=== PATIENT | female | born 1975 | race Hispanic/Latino ===

== ENCOUNTER 2016-07-14 06:52 | Inpatient (IN) | payer OTHER ==
[2016-07-14] MEDS ORDERED: PROVENTIL IH ONE (08:09)
[2016-07-14] MEDS ORDERED: MAGNESIUM SULFATE 2GM/50ML 2 GM/50 ML BAG IV ONE (08:09)
[2016-07-14] MEDS ORDERED: ATROVENT IH ONE (08:09)
--- NOTE | 2016-07-14 08:46 | Emergency Department Report ---
ED Shortness of Breath HPI - General Chief Complaint: Dyspnea/Respdistress Stated Complaint: TIFFANIE Time Seen by Provider: 07/14/16 07:58 Source: patient, EMS Mode of arrival: Stretcher Limitations: No Limitations - History of Present Illness Initial Comments: 41-year-old female with a past medical history presents now complaining of shortness of breath. Patient has had wheezing and a cough 1 month. She was treated with a Z-Khurram and prescribed albuterol inhaler 1 month ago. Symptoms have been gradually improving. Wheezing episode started to worsen again yesterday and patient developed a cough productive of yellow sputum. Patient had acute worsening of symptoms this morning and had run out of her inhaler because did not have a chance to fill her refill of her prescription. No reports of fever or pain. Patient denies tobacco use or history of asthma. - Related Data Allergies Allergy/AdvReac Type Severity Reaction Status Date / Time No Known Allergies Allergy Verified 07/14/16 08:12 ED Review of Systems ROS: Stated complaint: TIFFANIE Other details as noted in HPI Comment: All other systems reviewed and negative Other: Constitutional: No fevers chills Eyes: No eye pain visual changes or discharge ENT: No ear pain or throat pain Neck: Denies pain Respiratory: As per HPI Cardiovascular: Denies chest pain, palpitations, syncope GI: Denies abdominal pain, nausea, vomiting, diarrhea : Denies dysuria Musculoskeletal: Denies back pain, joint swelling Skin: Denies rash, lesions, erythema Neurologic: Denies headache, numbness, weakness Psychiatric: Denies suicidal ideation, hallucinations ED Past Medical Hx - Social History Smoking Status: Never Smoker Substance Use Type: None ED Physical Exam - General Limitations: No Limitations - Other Other exam information: General: No limitations, patient is alert in no acute distress Head exam: Atraumatic, normocephalic Eyes exam: Normal appearance ENT: Moist mucous membrane, normal oropharynx Neck exam: Normal inspection, full range of motion Respiratory exam: Expiratory wheezing, tachypnea, mild accessory use, interrupted sentences secondary to shortness of breath Cardiovascular: Normal rate and rhythm, normal heart sounds and Abdomen: Soft, nondistended, and nontender, with normal bowel sounds, no rebound, or guarding Extremity: Full range of motion normal inspection no deformity, no calf tenderness or edema Back: Normal Inspection, full range of motion, no tenderness Neurologic: Alert, oriented x3, cranial nerves intact, no motor or sensory deficit Psychiatric: normal affect, normal mood Skin: Warm, dry, intact ED Course Vital Signs 07/14/16 07/14/16 07/14/16 06:57 07:00 07:06 Temperature 97.9 F Pulse Rate 122 H 107 H 107 H Respiratory 26 H 22 25 H Rate Blood Pressure 112/63 112/63 Blood Pressure 112/63 [Left] O2 Sat by Pulse 98 97 97 Oximetry 07/14/16 07/14/16 07/14/16 07:18 07:30 07:42 Temperature Pulse Rate 109 H Respiratory 34 H 16 Rate Blood Pressure 112/63 105/71 Blood Pressure [Left] O2 Sat by Pulse 98 99 98 Oximetry - Reevaluation(s) Reevaluation #1: 07/14/16 09:40 Patient received Solu-Medrol, magnesium, azithromycin as well as albuterol 10/ Atrovent 1 mg. Patient states to have significant wheezing. Left arm IV placed by EMS infiltrated has some surrounding erythema and tenderness. Dilaudid 0.5 mg and Phenergan order for this pain. 07/14/16 09:41 ED Medical Decision Making - Lab Data Result diagrams: 07/14/16 08:26 07/14/16 08:26 Lab Results 07/14/16 07/14/16 Range/Units 08:26 08:26 WBC 14.8 H (4.5-11.0) K/mm3 RBC 4.50 (3.65-5.03) M/mm3 Hgb 13.6 (10.1-14.3) gm/dl Hct 42.0 (30.3-42.9) % MCV 93 (79-97) fl MCH 30 (28-32) pg MCHC 32 (30-34) % RDW 13.5 (13.2-15.2) % Plt Count 234 (140-440) K/mm3 Lymph % (Auto) 13.0 L (13.4-35.0) % [place] % (Auto) 8.4 H (0.0-7.3) % Eos % (Auto) 7.6 H (0.0-4.3) % Baso % (Auto) 0.6 (0.0-1.8) % Lymph # 1.9 (1.2-5.4) K/mm3 [place] # 1.2 H (0.0-0.8) K/mm3 Eos # 1.1 H (0.0-0.4) K/mm3 Baso # 0.1 (0.0-0.1) K/mm3 Seg Neutrophils % 70.4 H (40.0-70.0) % Seg Neutrophils # 10.4 H (1.8-7.7) K/mm3 Sodium 143 (137-145) mmol/L Potassium 4.3 (3.6-5.0) mmol/L Chloride 107.3 H (98-107) mmol/L Carbon Dioxide 26 (22-30) mmol/L Anion Gap 14 mmol/L BUN 7 (7-17) mg/dL Creatinine 0.4 L (0.7-1.2) mg/dL Estimated GFR > 60 ml/min BUN/Creatinine Ratio 17.50 % Glucose 76 (65-100) mg/dL Calcium 8.7 (8.4-10.2) mg/dL - Radiology Data Radiology results: report reviewed (chest x-ray: Unremarkable) - Medical Decision Making Patient's persistent wheezing shortness of breath and therefore will be admitted for continued treatment. Medications received in the ED: Albuterol 10 mg Atrovent 1 mg The initial one 25 mg Magnesium 2 g, Dilaudid 0.5 mg Phenergan 25 by mouth - Differential Diagnosis asthma, bronchitis, CHF, pneumonia Critical Care Time: No Critical care attestation.: If time is entered above; I have spent that time in minutes in the direct care of this critically ill patient, excluding procedure time. ED Disposition Clinical Impression: Acute bronchitis, Moderate persistent reactive airway disease with wheezing without complication Disposition: DC-09 OP ADMIT IP TO THIS HOSP Is pt being admited?: Yes Condition: Stable Time of Disposition: 09:42 (Dr. Camargo/[facility])
[2016-07-14 08:54] LABS: Basophils % (Auto) 0.6 % (0.0-1.8); Eosinophils % (Auto) 7.6 % (0.0-4.3); Hemoglobin 13.6 gm/dl (10.1-14.3); Mean Corpuscular HGB Conc 32 % (30-34); Mean Corpuscular Hemoglobin 30 pg (28-32); Mean Corpuscular Volume 93 fl (79-97); Platelet Count 234 K/mm3 (140-440); Red Cell Distribution Width 13.5 % (13.2-15.2); White Blood Count 14.8 K/mm3 (4.5-11.0)
--- NOTE | 2016-07-14 08:57 | XRay Report ---
ROUTINE CHEST, TWO VIEWS: HISTORY: Shortness of breath, cough. The trachea, heart, mediastinal contour, lung calhoun and bony thorax are unremarkable. Calcified granuloma in the right lower lobe is noted. IMPRESSION: Unremarkable chest x-ray.
[2016-07-14] MEDS ORDERED: ZITHROMAX 500 MG in NACL 0.9% 250ML 250 ML IV ONE (09:00)
[2016-07-14 09:04] LABS: Anion Gap 14 mmol/L; Blood Urea Nitrogen 7 mg/dL (7-17); Calcium 8.7 mg/dL (8.4-10.2); Carbon Dioxide 26 mmol/L (22-30); Chloride 107.3 mmol/L (98-107); Glucose 76 mg/dL (65-100); Potassium 4.3 mmol/L (3.6-5.0); Sodium 143 mmol/L (137-145)
[2016-07-14] MEDS ORDERED: PHENERGAN PO ONE (09:39)
[2016-07-14] MEDS ORDERED: DILAUDID IV ONE (09:39)
--- NOTE | 2016-07-14 10:04 | Admit Criteria Form ---
Admission Criteria Documentation: PULMONARY DISEASE GRG Clinical Indications for Admission to Inpatient Care ( Place 'X' for any and all applicable criteria): Hospital admission is needed for appropriate care of the patient because of ANY ONE of the following(1): [ ]I. Impending or actual respiratory arrest ( Use Respiratory Failure Criteria for severe respiratory disease and long-term mechanical ventilation patients) (4) [ ]II. Severe airflow or ventilation abnormalities (not responsive to emergency and observation care treatment as appropriate) as indicated by ANY ONE of the following(5)(6)(7)(8) : [ ]a) PCO2 > 42 mm Hg (5.6 kPa) and pH < 7.35 (new) [ ]b) Documented PCO2 increase > 5 mm Hg (0.7 kPa) from disease baseline [ ]c) Airflow measurements[A] < 60% of previous best or predicted ( e.g., PEF <300 L/minute) despite intensive emergent treatment[B] [ ]d) Required respiratory treatments that are performable only in acute inpatient setting [ ]III. Severe respiratory findings (not responsive to emergency and observation care treatment as appropriate) including ANY ONE of the following(5)(8)(9): [ ]a) Respiratory distress as indicated by ALL of the following(5)(10): [ ]i) Patient with ANY ONE of the following: [ ]1) Dyspnea (difficulty breathing) [ ]2) Abnormal breathing pattern (eg, chest retractions) [ ]3) Tachypnea [ ]4) Other evidence of difficulty breathing [ ]ii) Evidence of respiratory compromise indicated by ANY ONE of the following: [ ]1) Hypoxemia [ ]2) Altered mental status [ ]3) Other evidence of respiratory compromise (eg, pulmonary edema on chest x-ray) [ ]b) Stridor [ ]c) Gross hemoptysis(11) [ ]d) Acute cyanosis [ ]IV. High-risk pulmonary infection as indicated by ANY ONE of the following( 19)(20)(21)(22): [ ]a) Temperature less than 95 degrees F(35 degrees C) or greater than 103.1 degrees F(39.5 degrees C) [ ]b) Hemodynamic instability that remains after emergency or observation level care (as appropriate) [ ]c) Immunocompromised patient (eg, AIDS, post transplant, neutropenic) [ ]d) History of severe COPD [ ]e) History of severely symptomatic congestive heart failure [ ]f) Other high-risk comorbidity (eg, poorly controlled diabetes, cirrhosis, chronic renal insufficiency) [ ]g) Hypoxemia (new) [ ]h) Outpatient, observation, or recovery facility therapy has failed, is not appropriate, or is not feasible [ ]V. Severe atelectasis or lung collapse(15)(16) [ ]. Tuberculosis requiring inpatient treatment as indicated by ANY ONE of the following(17)(18): [ ]a) New positive acid-fast bacilli sputum smear [ ]b) Positive acid-fast bacilli smear (under current treatment), with ANY ONE of the following: [ ]i) Unexposed household contacts [ ]ii) Infants or immunosuppressed household contacts [ ]iii) Patient unable or unwilling to avoid exposing others [ ]iv) Severe immunocompromised patient (eg, AIDS, post transplant, neutropenic) [ ]VII. Empyema or lung abscess(13)(14) [ ]VIII. Severe pulmonary arterial hypertension or pulmonary vascular disease requiring inpatient care indicated by ANY ONE of the following(24)(25): [ ]a) Initiation or change of vasodilators (IV, subcutaneous, or inhaled) or other vasoactive medications needed [ ]b) IV anticoagulation needed (eg, immediate anticoagulation necessary, alternatives not appropriate) [ ]c) Arterial or pulmonary artery catheter monitoring needed due to infusion or other treatment [ ]IX. Chronic lung disease with severe deterioration (not responsive to emergency and observation care treatment as appropriate) as indicated by ANY ONE of the following (6)(12): [ ]a) SaO2 5% below baseline in patient with chronic hypoxemia [ ]b) New requirement for supplemental oxygen to keep SaO2 at baseline or acceptable level [ ]c) Required supplemental oxygen performable only in acute inpatient setting [ ]d) Severe airflow or ventilation abnormalities [ ]e) Rapid rate of exacerbation onset [ ]f) Previously mobile patient unable to walk between rooms [ ]g) Inability to eat or sleep due to dyspnea [ ]h) Altered mental status [ ]X. Cystic fibrosis with severe deterioration as indicated by ANY ONE of the following(26)(27): [ ]a) Severe exacerbation that does not respond to intensified home therapy [ ]b) Pneumonia [ ]c) Hemoptysis [ ]d) Atelectasis [ ]e) Pneumothorax [ ]f) Respiratory failure [ ]g) Severe exacerbation with patient unable to perform prescribed treatments at home [ ]XI. Severe right heart failure as indicated by ANY ONE of the following(24) (25): [ ]a) Increasing organ failure (eg, liver congestion with significant and worsening or new elevation of transaminases) [ ]b) Anasarca [ ]c) Angina that requires inpatient care (eg, not treatable in emergency or observation level of care) [ ]d) Respiratory distress [ ]e) Syncope [ ]f) SBP < 90 mm Hg (new) [ ]XII. Injury requiring inpatient care (medical) as indicated by ANY ONE of the following(28): [ ]a) Significant inhalation injury (eg, smoke inhalation, other toxic inhalation) (29)(30)(31) [ ]b) Airway obstruction that remains or is unstable after emergency or observation level care(32) [ ]c) Severe pain requiring acute inpatient management [ ]d) Lung contusion [ ]e) Bronchial tree injury [ ]f) Air or fat emboli(33) [ ]g) Other injury not treatable in emergency or observation level care (eg, hemothorax) (34) [ ]XIII. Pulmonary hemorrhage or significant hemoptysis(11)(35)(36) [ ]XIV. Inpatient palliative care needed[C](37)(38)(39)(40) [ ]XV. Complications of lung transplant (eg, rejection, failure, respiratory infection) (23) [ X]XVI. Pulmonary Disease and ANY ONE of the following: [X ]a) General Admission Criteria [ ]b) Pediatric General Admission Criteria The original [facility] content created by [facility] has been revised. The portions of the content which have been revised are identified through the use of italic text or in bold, and [facility] has neither reviewed nor approved the modified material. All other unmodified content is copyright [facility]. Please see references footnoted in the original [facility] edition 2016 Admission Criteria Met: Yes
[2016-07-14] MEDS ORDERED: ZOFRAN IV PRN (11:37)
[2016-07-14] MEDS ORDERED: TYLENOL PO PRN (11:37)
[2016-07-14] MEDS ORDERED: DULCOLAX PR PRN (11:37)
[2016-07-14] MEDS ORDERED: MILK OF MAGNESIA PO PRN (11:37)
--- NOTE | 2016-07-14 11:37 | Event Note ---
Date: 07/14/16 See H/p in reports ASTHMA Exacerbation with bronchitis Dvt prophylaxis
[2016-07-14] MEDS ORDERED: DILAUDID IV PRN (11:38)
[2016-07-14] MEDS ORDERED: AMBIEN PO PRN (11:39)
[2016-07-14] MEDS ORDERED: DUONEB 0.5 MG-3 MG/3 ML SOLN IH PRN (11:39)
[2016-07-14] MEDS ORDERED: D5NS 1,000 ML IV SCH (12:00)
[2016-07-14] MEDS ORDERED: PROVENTIL IH PRN (12:45)
[2016-07-14] MEDS: DUONEB 0.5 MG-3 MG/3 ML SOLN IH SCH ×2 (14:01→19:18)
[2016-07-14] MEDS ORDERED: WATER FOR INJ (PF) 10 ML ONE (14:10)
[2016-07-14] MEDS: LEVAQUIN 750MG/150ML 750 MG/150 ML BAG IV SCH (15:06)
[2016-07-14] MEDS: PERCOCET 5/325 PO PRN (19:19)
--- NOTE | 2016-07-15 01:22 | History and Physical Report ---
CHIEF COMPLAINT: Increasing shortness of breath for one month, more so for the last 2 days. HISTORY OF PRESENT ILLNESS: A 41-year-old female with history of asthma presents with increasing shortness of breath for the last 1 month, more so for the last 2 days. The patient was prescribed Z-MARY and albuterol inhaler 1 month ago. Symptoms were improved for some time, but started deteriorating for the last 2 days, cough productive of yellow sputum. No fever, no chills. ALLERGIES: None. No recent travel. PAST MEDICAL HISTORY: Significant for asthma. SOCIAL HISTORY: Does not smoke. No alcohol, no recreational drugs. PAST SURGICAL HISTORY: Unavailable. FAMILY HISTORY: No hypertension, no diabetes. REVIEW OF SYSTEMS: Significant for; CONSTITUTIONAL: No fever. No weight loss, no chills, no weight gain. HEENT: Unremarkable. No sore throat. No postnasal drip. CARDIOVASCULAR AND RESPIRATORY: Severe wheezing present. Cough productive of yellow sputum present. No chest pain. No diaphoresis. GASTROINTESTINAL: No nausea, no vomiting, no diarrhea. GENITOURINARY: No dysuria, no flank pain. MUSCULOSKELETAL: No joint pains. CENTRAL NERVOUS SYSTEM: No syncope, no seizures. SKIN: No rashes. LABORATORY DATA: Significant for white count of 14,800, H and H is 13.6 and 42.0, platelet count is 234,000. Sodium is 143, potassium is 4.3, chloride is 107, bicarbonate is 26, BUN and creatinine 7 and 0.4, glucose is 76. Chest x-ray, no infiltrates. ASSESSMENT AND PLAN: Asthma exacerbation with acute bronchitis. The patient was started on IV Levaquin, IV Solu-Medrol low dose 40 mg q. 8 and DuoNeb q. 6 round the clock and q. 3 p.r.n. Deep venous thrombosis prophylaxis, Lovenox 40 mg subcutaneous daily. [facility]# [id number] JACKI/NTS
[2016-07-15] MEDS: DUONEB 0.5 MG-3 MG/3 ML SOLN IH SCH ×3 (02:47→13:19)
[2016-07-15 07:50] LABS: Hematocrit 41.7 % (30.3-42.9); Hemoglobin 13.6 gm/dl (10.1-14.3); Mean Corpuscular HGB Conc 33 % (30-34); Mean Corpuscular Hemoglobin 30 pg (28-32); Mean Corpuscular Volume 93 fl (79-97); Platelet Count 237 K/mm3 (140-440); Red Blood Count 4.49 M/mm3 (3.65-5.03); Red Cell Distribution Width 13.2 % (13.2-15.2); White Blood Count 15.5 K/mm3 (4.5-11.0)
[2016-07-15 08:08] LABS: Alanine Aminotransferase 28 units/L (7-56); Albumin 3.7 g/dL (3.9-5); Albumin/Globulin Ratio 1.5 %; Alkaline Phosphatase 57 units/L (35-129); Anion Gap 18 mmol/L; Blood Urea Nitrogen 8 mg/dL (7-17); Calcium 8.8 mg/dL (8.4-10.2); Carbon Dioxide 23 mmol/L (22-30); Glucose 172 mg/dL (65-100); Potassium 4.5 mmol/L (3.6-5.0); Sodium 142 mmol/L (137-145); Total Protein 6.2 g/dL (6.3-8.2)
[2016-07-15 09:32] LABS: Basophils % (Manual) 0 % (0.0-1.8); Blastocytes % (Manual) 0 %; Diff Status Complete; Eosinophils % (Manual) 0 % (0.0-4.3); Ovalocytes Rare
[2016-07-15] MEDS: PERCOCET 5/325 PO PRN (09:42)
[2016-07-15 09:46] VITALS: BP 137/71
[2016-07-15] MEDS: LEVAQUIN 750MG/150ML 750 MG/150 ML BAG IV SCH (10:29)
--- NOTE | 2016-07-15 10:30 | Discharge Summary ---
Providers - Providers Date of Admission: 07/14/16 09:57 Date of discharge: 07/15/16 Attending physician: KYLAH XIAO Primary care physician: CH[employer] SCRE[employer]ER Hospitalization Condition: Good Disposition: DC-01 TO HOME OR SELFCARE Core Measure Documentation - Palliative Care Palliative Care/ Comfort Measures: Not Applicable Exam - Constitutional Vitals: Temp Pulse Resp BP Pulse Ox 98.1 F 82 18 137/71 96 07/15/16 07:05 07/15/16 07:39 07/15/16 07:39 07/15/16 07:05 07/15/16 07:30 Plan Activity: no restrictions Diet: low fat, low cholesterol Additional Instructions: 1.Follow up with PCP in 1 week Follow up with: PRIMARY CARE, [Primary Care Provider] - 7 Days Prescriptions: Albuterol Sulfate [Ventolin HFA] 2 puff IH Q4H PRN #1 pump PRN Reason: Shortness Of Breath Prednisone [predniSONE 5 mg (6-Day Pack, 21 Tabs)] 5 mg PO .TAPER #1 tab.ds.pk
[2016-07-15] MEDS ORDERED: PNEUMOVAX 23 IM ONE (12:00)
[2016-07-15] MEDS ORDERED: FLUARIX QUAD 2016-2017(36 MOS+) IM ONE (12:00)
== END 2016-07-15 16:31 | disposition home or self-care (01) | DRG 202 ==
LOC: ED 06:52 → 3A 09:57
PROVIDERS: ADMIT Internal Medicine; ATTEND Internal Medicine
DX: J20.9 Acute bronchitis, unspecified (principal); J45.901 Unspecified asthma with (acute) exacerbation
CPT/HCPCS: 36415; 71020; 80048; 80053; 83036; 85007; 85025; 90686; 90732; 94640; 94760; J0456; J1170; J1956; J2930; J3475; J7042; J7050; Q0169

== ENCOUNTER 2016-08-26 21:23 | Emergency (ER) | payer SELFPAY ==
[2016-08-26 21:35] VITALS: BP 144/93
[2016-08-26] MEDS ORDERED: DUONEB *Not for PRN Use IH ONE (21:35)
[2016-08-26 22:21] LABS: Basophils % (Auto) 0.5 % (0.0-1.8); Eosinophils % (Auto) 4.8 % (0.0-4.3); Hematocrit 43.6 % (30.3-42.9); Hemoglobin 14.3 gm/dl (10.1-14.3); Mean Corpuscular HGB Conc 33 % (30-34); Mean Corpuscular Hemoglobin 31 pg (28-32); Mean Corpuscular Volume 93 fl (79-97); Platelet Count 238 K/mm3 (140-440); Red Blood Count 4.67 M/mm3 (3.65-5.03); Red Cell Distribution Width 13.6 % (13.2-15.2); White Blood Count 13.9 K/mm3 (4.5-11.0)
[2016-08-26 22:36] LABS: Anion Gap 16 mmol/L; BUN/Creatinine Ratio 13.33; Blood Urea Nitrogen 8 mg/dL (7-17); Calcium 8.8 mg/dL (8.4-10.2); Carbon Dioxide 28 mmol/L (22-30); Chloride 101.2 mmol/L (98-107); Glucose 93 mg/dL (65-100); Potassium 4.5 mmol/L (3.6-5.0); Sodium 141 mmol/L (137-145)
--- NOTE | 2016-08-26 23:01 | XRay Report ---
FINAL REPORT PROCEDURE: XR CHEST ROUTINE 2V TECHNIQUE: Two views of the chest are obtained HISTORY: Shortness of breath COMPARISON: No prior studies are available for comparison. FINDINGS: Heart is normal in size. No pneumothorax or pleural effusion is seen. There is suggestion of possible increased perihilar markings on the lateral view which is not readily apparent on the frontal view. Findings could be due to bronchitis or atypical pneumonia. IMPRESSION: Possible increased perihilar markings are seen on the lateral view, that could be from bronchitis or atypical pneumonia.
[2016-08-27] MEDS ORDERED: DUONEB *Not for PRN Use IH ONE ×2 (02:35→02:39)
--- NOTE | 2016-08-30 13:37 | ED Elopement Review ---
ED Pt Elopement review - Results review Lab results: Laboratory Tests 08/26/16 08/26/16 22:03 22:03 WBC 13.9 H RBC 4.67 Hgb 14.3 Hct 43.6 H MCV 93 MCH 31 MCHC 33 RDW 13.6 Plt Count 238 Lymph % (Auto) 18.1 [place] % (Auto) 7.3 Eos % (Auto) 4.8 H Baso % (Auto) 0.5 Lymph # 2.5 Rich # 1.0 H Eos # 0.7 H Baso # 0.1 Seg Neutrophils % 69.3 Seg Neutrophils # 9.6 H Sodium 141 Potassium 4.5 Chloride 101.2 Carbon Dioxide 28 Anion Gap 16 BUN 8 Creatinine 0.6 L Estimated GFR > 60 BUN/Creatinine Ratio 13.33 Glucose 93 Calcium 8.8 Troponin T < 0.010 - Call Back decision Pt Call Back Decision: Call pt to return to ED BETZAIDA (abnormal EKG possible pneumonia on CXR)
== END 2016-08-26 22:04 | disposition left against medical advice (07) ==
LOC: ED 21:23
DX: R06.02 Shortness of breath (principal); J45.909 Unspecified asthma, uncomplicated; Z53.21 Procedure and treatment not carried out due to patient leaving prior to being seen by health care provider
CPT/HCPCS: 36415; 71020; 80048; 84484; 85025; 93005; 93010; 94640